=== PATIENT | female | born 1940 | race Caucasian/White ===

== ENCOUNTER 2020-01-15 15:57 | Observation (INO) ==
[2020-01-15] MEDS ORDERED: TUSSIONEX PENNKINETIC SUSP PO PRN (17:28)
[2020-01-15] MEDS ORDERED: REMDESIVIR 200 MG in NS 250 ML IV 250 ML IV SCH (17:28)
[2020-01-15] MEDS ORDERED: LEVAQUIN PREMIX IV 500 MG 500 MG/100 ML BAG IV SCH (17:28)
[2020-01-15] MEDS ORDERED: NS 1/2 1000 ML IV 1,000 ML IV ONE (17:38)
[2020-01-15 17:54] LABS: ABG BASE EXCESS 1.3 mmol/L (-2.0-2.0); ABG HCO3 25.9 mmol/L (22-26)
[2020-01-15] MEDS: DUONEB 0.5 MG/3 MG (3 mL) NEB SCH ×2 (18:29→21:21)
[2020-01-15] MEDS: PULMICORT NEB TX 0.5 MG NEB SCH ×2 (18:29→21:21)
[2020-01-15] MEDS: NS 1/2 1000 ML IV 1,000 ML IV SCH (18:52)
[2020-01-15] MEDS: ROBITUSSIN DM PO SCH ×2 (18:52→21:14)
[2020-01-15] MEDS: VSL#3 PO SCH (18:52)
[2020-01-15 19:16] LABS: BASOPHILS % (AUTO) 0.6 % (0.2-1.0); EOSINOPHILS # (AUTO) 0.1 x10^3/uL (0.0-0.2); EOSINOPHILS % (AUTO) 1.9 % (0.9-2.9); HEMATOCRIT 35.2 % (36.0-47.0); HEMOGLOBIN 11.4 g/dL (12.0-16.0); LYMPHOCYTES # (AUTO) 2.7 X10^3/uL (1.3-2.9); LYMPHOCYTES % (AUTO) 44.9 % (21.0-51.0); MEAN CORPUSCULAR HEMOGLOBIN 26.7 pg (27.0-34.0); MEAN CORPUSCULAR HGB CONC 32.3 g/dL (33.0-35.0); MEAN CORPUSCULAR VOLUME 82.7 fL (80.0-100.0); MEAN PLATELET VOLUME 7.3 fL (7.4-11.0); MONOCYTES # (AUTO) 0.4 x10^3/uL (0.3-0.8); MONOCYTES % (AUTO) 6.4 % (0.0-13.0); NEUTROPHILS # (AUTO) 2.8 x10^3/uL (2.2-4.8); NEUTROPHILS % (AUTO) 46.2 % (42.0-75.0); PLATELET COUNT 180 X10^3/uL (150.0-450.0); RED BLOOD COUNT 4.26 X10^6/uL (3.5-5.4); RED CELL DISTRIBUTION WIDTH 14.4 % (11.6-16.5)
[2020-01-15 19:35] LABS: ALANINE AMINOTRANSFERASE 24 Units/L (12-78); ALBUMIN 3.4 g/dL (3.4-5.0); ALKALINE PHOSPHATASE 73 Units/L (46-116); ASPARTATE AMINO TRANSFERASE 17 Units/L (15-37); BLOOD UREA NITROGEN 8 mg/dL (7-18); CALCIUM 8.6 mg/dL (8.5-10.1); CARBON DIOXIDE 32.9 mmol/L (21-32); CHLORIDE 103 mmol/L (98-107); CKMB % 0.2 % (<4); CREATINE KINASE 578 Units/L (26-192); CREATINE KINASE MB < 1.0 ng/mL (0-4.0); CREATININE 0.93 mg/dL (0.55-1.02); SODIUM 141 mmol/L (136-145); TOTAL PROTEIN 6.3 g/dL (6.4-8.2); TROPONIN I < 0.02 ng/mL (0-1.5); eGFR NON BLACK RACES > 60 (>60)
[2020-01-15] MEDS ORDERED: SOLU-Medrol 40 MG VIAL ONE (20:29)
[2020-01-15] MEDS ORDERED: TESSALON PERLES PO ONE (20:29)
[2020-01-15] MEDS ORDERED: DUONEB 0.5 MG/3 MG (3 mL) NEB SCH (21:00)
[2020-01-15] MEDS ORDERED: PULMICORT NEB TX 0.5 MG NEB SCH (21:00)
[2020-01-15] MEDS ORDERED: PEPCID 20 MG IV PREMIX* 20 MG/50 ML BAG IV SCH (21:00)
[2020-01-15] MEDS: SOLU-Medrol 40 MG VIAL IVP SCH (21:14)
[2020-01-15] MEDS: PROTONIX INJ 40 MG VIAL IVP SCH (21:14)
[2020-01-15] MEDS: TESSALON PERLES PO SCH (21:14)
[2020-01-15 22:10] LABS: RSV AG DETECTION NEGATIVE (NEGATIVE); STREP A BY PCR NOT DETECTED (NOT DETECT)
--- NOTE | 2020-01-15 22:14 | RAD ---
HISTORYPNEUMONIASTUDYCHEST, 1 VIEWCOMPARISONNoneFINDINGSThe trachea is midline. The cardiac silhouette is slightly enlarged.. The lungs are clear without focal infiltrate or effusion. Pulmonary vasculature within normal limits. No pneumothorax. The bony thorax is unremarkable.IMPRESSIONSlight cardiomegaly.No active cardiopulmonary diseaseElectronically signed by: Cr Gann (Jan 15, 2020 22:13:17)
[2020-01-16] MEDS: SOLU-Medrol 40 MG VIAL IVP SCH ×3 (05:30→21:45)
[2020-01-16] MEDS: TESSALON PERLES PO SCH ×3 (05:30→21:45)
[2020-01-16 06:00] LABS: ALBUMIN 3.3 g/dL (3.4-5.0); CALCIUM 8.6 mg/dL (8.5-10.1); CARBON DIOXIDE 27.1 mmol/L (21-32); COR CA(FOR HYPOALB) 9.2 mg/dL (8.5-10.1); CREATININE 1.37 mg/dL (0.55-1.02); TOTAL PROTEIN 7.3 g/dL (6.4-8.2)
--- NOTE | 2020-01-16 06:10 | RAD ---
HISTORYFollow-up COVID-19STUDYChest AP [id number]/09/2020FINDINGSThe heart remains enlarged. No congestive heart failure is noted. The tyra are normal. The lungs are mildly hyperinflated but free of acute infiltrates. No pleural effusions are identified. Bony thorax is unremarkable.IMPRESSIONMild cardiomegaly without congestive heart failureLungs hyperinflated but free of acute infiltratesElectronically signed by: ELDON HEDRICK (Jan 16, 2020 06:08:20)
[2020-01-16 06:17] LABS: BASOPHILS % (AUTO) 0.3 % (0.2-1.0); HEMATOCRIT 38.2 % (36.0-47.0); HEMOGLOBIN 12.8 g/dL (12.0-16.0); LYMPHOCYTES # (AUTO) 0.8 X10^3/uL (1.3-2.9); LYMPHOCYTES % (AUTO) 22.3 % (21.0-51.0); MEAN CORPUSCULAR HEMOGLOBIN 31.6 pg (27.0-34.0); MEAN CORPUSCULAR HGB CONC 33.4 g/dL (33.0-35.0); MEAN CORPUSCULAR VOLUME 94.6 fL (80.0-100.0); MEAN PLATELET VOLUME 8.8 fL (7.4-11.0); MONOCYTES # (AUTO) 0.1 x10^3/uL (0.3-0.8); MONOCYTES % (AUTO) 3.1 % (0.0-13.0); NEUTROPHILS # (AUTO) 2.7 x10^3/uL (2.2-4.8); NEUTROPHILS % (AUTO) 74.3 % (42.0-75.0); PLATELET COUNT 217 X10^3/uL (150.0-450.0); RED BLOOD COUNT 4.04 X10^6/uL (3.5-5.4); RED CELL DISTRIBUTION WIDTH 14.4 % (11.6-16.5); WHITE BLOOD COUNT 3.6 X10^3/uL (3.6-10.0)
[2020-01-16] MEDS: LEVAQUIN PREMIX IV 250 MG 250 MG/50 ML BAG IV SCH (09:23)
[2020-01-16] MEDS: PULMICORT NEB TX 0.5 MG NEB SCH ×2 (09:24→21:36)
[2020-01-16] MEDS: PROTONIX INJ 40 MG VIAL IVP SCH ×2 (09:24→21:45)
[2020-01-16] MEDS: DUONEB 0.5 MG/3 MG (3 mL) NEB SCH ×4 (09:24→21:35)
[2020-01-16] MEDS: PEPCID 20 MG IV PREMIX* 20 MG/50 ML BAG IV SCH (09:24)
[2020-01-16] MEDS: ROBITUSSIN DM PO SCH ×4 (09:25→22:03)
[2020-01-16] MEDS: LOVENOX INJ 30 MG SYR SC SCH ×2 (09:25→21:45)
[2020-01-16] MEDS: VSL#3 PO SCH (09:26)
[2020-01-16] MEDS ORDERED: NS 1/2 1000 ML IV 1,000 ML IV ONE (10:20)
[2020-01-16] MEDS: NS 1/2 1000 ML IV 1,000 ML IV SCH ×2 (10:24→22:03)
[2020-01-16] MEDS: REMDESIVIR 100 MG in NS 250 ML IV 250 ML IV SCH (10:24)
[2020-01-16] MEDS: SYNTHROID 125 mcg TAB PO SCH (12:37)
[2020-01-16] MEDS: ASPIRIN EC 81 MG PO SCH (12:37)
[2020-01-16] MEDS: COREG TAB 12.5 MG PO SCH ×2 (12:37→21:45)
[2020-01-16] MEDS: NORVASC TAB 5 MG PO SCH (12:38)
[2020-01-16] MEDS: COZAAR PO SCH ×2 (12:38→21:45)
[2020-01-16] MEDS: NEURONTIN CAP 400 MG PO SCH ×2 (12:38→21:45)
[2020-01-16 18:39] VITALS: BMI 29.2
[2020-01-16] MEDS: KLONOPIN TAB 0.5 MG PO SCH (21:45)
[2020-01-17] MEDS ORDERED: NS 1/2 1000 ML IV 1,000 ML IV ONE ×2 (03:33→19:56)
[2020-01-17] MEDS: NS 1/2 1000 ML IV 1,000 ML IV SCH ×3 (03:55→20:04)
[2020-01-17] MEDS: TESSALON PERLES PO SCH ×3 (05:08→21:07)
[2020-01-17] MEDS: SOLU-Medrol 40 MG VIAL IVP SCH ×3 (05:08→21:07)
[2020-01-17 05:14] LABS: BASOPHILS % (AUTO) 0.3 % (0.2-1.0); HEMATOCRIT 38.3 % (36.0-47.0); HEMOGLOBIN 13.1 g/dL (12.0-16.0); LYMPHOCYTES # (AUTO) 1.2 X10^3/uL (1.3-2.9); LYMPHOCYTES % (AUTO) 15.2 % (21.0-51.0); MEAN CORPUSCULAR HEMOGLOBIN 31.9 pg (27.0-34.0); MEAN CORPUSCULAR HGB CONC 34.1 g/dL (33.0-35.0); MEAN CORPUSCULAR VOLUME 93.5 fL (80.0-100.0); MEAN PLATELET VOLUME 8.3 fL (7.4-11.0); MONOCYTES # (AUTO) 0.4 x10^3/uL (0.3-0.8); MONOCYTES % (AUTO) 4.8 % (0.0-13.0); NEUTROPHILS # (AUTO) 6.1 x10^3/uL (2.2-4.8); NEUTROPHILS % (AUTO) 79.7 % (42.0-75.0); PLATELET COUNT 232 X10^3/uL (150.0-450.0); RED CELL DISTRIBUTION WIDTH 14.7 % (11.6-16.5); WHITE BLOOD COUNT 7.7 X10^3/uL (3.6-10.0)
[2020-01-17 05:31] LABS: ALBUMIN 3.2 g/dL (3.4-5.0); CALCIUM 9.4 mg/dL (8.5-10.1); CARBON DIOXIDE 26.1 mmol/L (21-32); CREATININE 1.43 mg/dL (0.55-1.02); TOTAL PROTEIN 7.2 g/dL (6.4-8.2)
--- NOTE | 2020-01-17 06:27 | RAD ---
HISTORYCOVID, SOBSTUDYCHEST, 1 [id number]/10/2020FINDINGSThe trachea is midline. The cardiac silhouette is enlarged.. The lungs are clear without focal infiltrate or effusion. The bony thorax is unremarkable.IMPRESSIONMild cardiomegaly.No active cardiopulmonary diseaseElectronically signed by: Cr Gann (Jan 17, 2020 06:26:07)
[2020-01-17 08:02] LABS: ABG ALLEN TEST POS; ABG BASE EXCESS 0.8 mmol/L (-2.0-2.0); ABG HCO3 25.3 mmol/L (22-26)
[2020-01-17] MEDS: COREG TAB 12.5 MG PO SCH ×2 (09:21→20:05)
[2020-01-17] MEDS: ASPIRIN EC 81 MG PO SCH (09:21)
[2020-01-17] MEDS: COZAAR PO SCH ×2 (09:21→20:05)
[2020-01-17] MEDS: LEVAQUIN PREMIX IV 250 MG 250 MG/50 ML BAG IV SCH (09:22)
[2020-01-17] MEDS: PEPCID 20 MG IV PREMIX* 20 MG/50 ML BAG IV SCH (09:23)
[2020-01-17] MEDS: PROTONIX INJ 40 MG VIAL IVP SCH ×2 (09:23→20:06)
[2020-01-17] MEDS: NEURONTIN CAP 400 MG PO SCH ×2 (09:23→20:06)
[2020-01-17] MEDS: ROBITUSSIN DM PO SCH ×6 (09:24→20:05)
[2020-01-17] MEDS: NORVASC TAB 5 MG PO SCH (09:24)
[2020-01-17] MEDS: REMDESIVIR 100 MG in NS 250 ML IV 250 ML IV SCH (09:24)
[2020-01-17] MEDS: VSL#3 PO SCH (09:25)
[2020-01-17] MEDS: SYNTHROID 125 mcg TAB PO SCH (09:25)
[2020-01-17] MEDS: LOVENOX INJ 30 MG SYR SC SCH ×2 (09:26→20:06)
[2020-01-17] MEDS: PULMICORT NEB TX 0.5 MG NEB SCH ×2 (09:36→21:17)
[2020-01-17] MEDS: DUONEB 0.5 MG/3 MG (3 mL) NEB SCH ×4 (09:36→21:17)
--- NOTE | 2020-01-17 13:09 | PCM.PROG ---
Progress Note - Progress Note for Day of Date of Exam: 01/17/20 - Subjective Subjective: IS BEING TREATED FOR BRONCHOPNEUMONIA DUE TO COVID-19 AND HYPOXIA. TODAY, SHE IS ALERT AND ORIENTED, LYING IN BED ON MORNING ROUNDS. SHE CONTINUES WITH COMPLAINTS OF SHORTNESS OF BREATH, COUGH, BODY ACHES, AND WEAKNESS. SHE DENIES SIGNIFICANT IMPROVEMENT IN SYMPTOMS SINCE ADMISSION. SHE IS CURRENTLY UTILIZING OXYGEN VIA NASAL CANNULA AT 2 LITERS/MINUTE. ON EXAMINATION, HEART IS REGULAR IN RATE AND RHYTHM. BILATERAL LUNGS ARE NOTED WITH DIMINISHED LUNG SOUNDS THROUGHOUT. ABDOMEN IS ROUND, SOFT, AND NON-TENDER WITH NORMAL BOWEL SOUNDS NOTED IN ALL QUADRANTS. HER VITALS THIS MORNING ARE: [id number]%nc-128/62. LABS WERE OBTAINED. ABNORMAL LAB VALUES INCLUDE THE FOLLOWING: BUN 19, CREATININE 1.43, GLUCOSE 166, TOTAL BILI 0.10, ALK PHOS 120, CRP 7.80, ALBUMIN 3.2. BLOOD CULTURES ARE PENDING. AN ABG WAS OBTAINED AND WAS WITHIN NORMAL LIMITS. P02 82, FI02 28.0. CHEST XRAY REVEALED: Mild cardiomegaly. No active cardiopulmonary disease. SHE IS CURRENTLY RECEIVING NS AT 75 ML/HR, REMDESIVIR 100MG IV DAILY, LEVAQUIN 250MG IV DAILY, DUONEBS QID, PULMICORT NEBS BID, TESSALON PERLES 200MG PO TID, TUSSIONEX 5ML PO Q12H PRN, LOVENOX 30MG SC BID, PEPCID 20MG IV DAILY, PROTONIX 40MG IV BID, SOLU-MEDROL 40MG IV Q8H, AND HER HOME MEDICATIONS WERE RESUMED. WE WILL CONTINUE WITH CURRENT PLAN OF CARE TODAY. OTHERWISE, WE PLAN TO FOLLOW UP WITH AM LABS, CHEST XRAY, AND CONTINUE TO MONITOR. - Past Medical Family Social History Past Med/Fam/Surg Hx: No changes since H&P Allergies: Allergies No Known Allergies Allergy (Verified 01/15/20 17:28) - Review of Systems ROS: No change since H&P - Vital Signs and I&O's Vital Signs: Temperature 98 F Pulse Rate [Left Radial] 82 Pulse Rate 72 Respiratory Rate 23 Blood Pressure [Left Arm] 128/62 O2 Sat by Pulse Oximetry 97 Intake and Output: Intake & Output 01/15/20 01/16/20 01/17/20 01/18/20 11:59 11:59 11:59 11:59 Intake Total 1949 263 / 263 Balance 1949 - Physical Exam Oriented: Normal Eyes: Normal Ear: Normal Nose: Normal Throat: Normal Respiratory: Generalized, Diminished Cardiovascular: Normal : Normal Auscultation: Bowel Sounds: Normal Palpation: Normal Tenderness: Normal Skin: Normal Musculoskeletal: Normal Psychiatric: Normal Mood Description: Calm Affect: Normal Speech Pattern: Clear, Appropriate - Laboratory and Diagnostics Result Diagrams: 01/17/20 04:32 01/17/20 04:32 Labs: 01/15/20 18:17 Blood Blood Culture - Preliminary 01/15/20 18:06 Blood Blood Culture - Preliminary Laboratory WBC 7.7 X10^3/uL (3.6-10.0) 01/17/20 04:32 RBC 4.10 X10^6/uL (3.5-5.4) 01/17/20 04:32 Hgb 13.1 g/dL (12.0-16.0) 01/17/20 04:32 Hct 38.3 % (36.0-47.0) 01/17/20 04:32 MCV 93.5 fL (80.0-100.0) 01/17/20 04:32 MCH 31.9 pg (27.0-34.0) 01/17/20 04:32 MCHC 34.1 g/dL (33.0-35.0) 01/17/20 04:32 RDW 14.7 % (11.6-16.5) 01/17/20 04:32 Plt Count 232 X10^3/uL (150.0-450.0) 01/17/20 04:32 MPV 8.3 fL (7.4-11.0) 01/17/20 04:32 Neut % (Auto) 79.7 % (42.0-75.0) H 01/17/20 04:32 Lymph % (Auto) 15.2 % (21.0-51.0) L 01/17/20 04:32 Cooke % (Auto) 4.8 % (0.0-13.0) 01/17/20 04:32 Eos % (Auto) 0.0 % (0.9-2.9) L 01/17/20 04:32 Baso % (Auto) 0.3 % (0.2-1.0) 01/17/20 04:32 Neut # (Auto) 6.1 x10^3/uL (2.2-4.8) H 01/17/20 04:32 Lymph # (Auto) 1.2 X10^3/uL (1.3-2.9) L 01/17/20 04:32 [place] # (Auto) 0.4 x10^3/uL (0.3-0.8) 01/17/20 04:32 Eos # (Auto) 0.0 x10^3/uL (0.0-0.2) 01/17/20 04:32 Baso # (Auto) 0.0 X10^3/uL (0.0-0.1) 01/17/20 04:32 Absolute Nucleated RBC 0.0 /100WBC 01/17/20 04:32 D-Dimer 0.21 ug/ml (0.0-0.57) 01/15/20 18:06 Sample Site Rrad 01/17/20 07:54 ABG pH 7.420 (7.35-7.45) 01/17/20 07:54 ABG pCO2 39.0 mmHg (35.0-45.0) 01/17/20 07:54 ABG pO2 82.0 mmHg (80.0-100.0) 01/17/20 07:54 ABG HCO3 25.3 mmol/L (22-26) 01/17/20 07:54 ABG O2 Saturation 96.0 % (90-100) 01/17/20 07:54 ABG Base Excess 0.8 mmol/L (-2.0-2.0) 01/17/20 07:54 Steven Test Pos 01/17/20 07:54 A-a Gradient 69.0 mmHg 01/17/20 07:54 FiO2 28.0 01/17/20 07:54 Blood Gas Comments Pt nas well elj 01/17/20 07:54 Sodium 139 mmol/L (136-145) 01/17/20 04:32 Corrected Sodium 141 mmol/L (136-145) 01/17/20 04:32 Potassium 4.0 mmol/L (3.5-5.1) 01/17/20 04:32 Chloride 103 mmol/L (98-107) 01/17/20 04:32 Carbon Dioxide 26.1 mmol/L (21-32) 01/17/20 04:32 BUN 19 mg/dL (7-18) H 01/17/20 04:32 Creatinine 1.43 mg/dL (0.55-1.02) H 01/17/20 04:32 Est GFR (MDRD) Af Amer 45 (>60) L 01/17/20 04:32 Est GFR (MDRD) Non-Af 38 (>60) L 01/17/20 04:32 Glucose 166 mg/dL (65-99) H 01/17/20 04:32 Lactic Acid Cancelled 01/15/20 18:06 Calcium 9.4 mg/dL (8.5-10.1) 01/17/20 04:32 Corrected Calcium 10.0 mg/dL (8.5-10.1) 01/17/20 04:32 Ferritin 103 ng/mL (8-252) 01/17/20 04:32 Total Bilirubin 0.10 mg/dL (0.2-1.0) L 01/17/20 04:32 AST 33 Units/L (15-37) 01/17/20 04:32 ALT 35 Units/L (12-78) 01/17/20 04:32 Alkaline Phosphatase 120 Units/L (46-116) H 01/17/20 04:32 Creatine Kinase 578 Units/L (26-192) H 01/15/20 18:06 CK-MB (CK-2) < 1.0 ng/mL (0-4.0) 01/15/20 18:06 CK/CKMB % Calc 0.2 % (<4) 01/15/20 18:06 Troponin I < 0.02 ng/mL (0-1.5) 01/15/20 18:06 C-Reactive Protein 7.80 mg/L (0-3.0) H 01/17/20 04:32 B-Natriuretic Peptide 37.0 pg/mL (0-79) 01/15/20 18:06 Total Protein 7.2 g/dL (6.4-8.2) 01/17/20 04:32 Albumin 3.2 g/dL (3.4-5.0) L 01/17/20 04:32 Globulin 4.0 g/dL (2.5-4.5) 01/17/20 04:32 Albumin/Globulin Ratio 0.8 Ratio (1.1-2.1) L 01/17/20 04:32 RSV Nasal Swab Negative (NEGATIVE) 01/15/20 21:05 Influenza Type A (PCR) Negative (NEGATIVE) 01/15/20 21:05 Influenza Type B (PCR) Negative (NEGATIVE) 01/15/20 21:05 SARS CoV-2 RNA Rapid HALLEY Positive (NEGATIVE) A 01/15/20 21:05 S. pyogenes (TEM-PCR) Not detected (NOT DETECT) 01/15/20 21:05 - Plan (1) Bronchopneumonia Status: Acute Plan: ADMIT, NS AT 75 ML/HR, REMDESIVIR 100MG IV DAILY, LEVAQUIN 250MG IV DAILY, DUONEBS QID, PULMICORT NEBS BID, TESSALON PERLES 200MG PO TID, TUSSIONEX 5ML PO Q12H PRN, LOVENOX 30MG SC BID, PEPCID 20MG IV DAILY, PROTONIX 40MG IV BID, SOLU-MEDROL 40MG IV Q8H, AND HER HOME MEDICATIONS WERE RESUMED. (2) COVID-19 Status: Acute
[2020-01-17] MEDS: KLONOPIN TAB 0.5 MG PO SCH (20:05)
[2020-01-18] MEDS: NS 1/2 1000 ML IV 1,000 ML IV SCH ×2 (02:12→11:32)
[2020-01-18 05:03] LABS: BASOPHILS % (AUTO) 0.2 % (0.2-1.0); HEMATOCRIT 39.7 % (36.0-47.0); HEMOGLOBIN 12.9 g/dL (12.0-16.0); LYMPHOCYTES # (AUTO) 1.3 X10^3/uL (1.3-2.9); LYMPHOCYTES % (AUTO) 9.9 % (21.0-51.0); MEAN CORPUSCULAR HGB CONC 32.6 g/dL (33.0-35.0); MEAN CORPUSCULAR VOLUME 95.2 fL (80.0-100.0); MEAN PLATELET VOLUME 9.1 fL (7.4-11.0); MONOCYTES # (AUTO) 0.4 x10^3/uL (0.3-0.8); MONOCYTES % (AUTO) 2.8 % (0.0-13.0); NEUTROPHILS # (AUTO) 11.4 x10^3/uL (2.2-4.8); NEUTROPHILS % (AUTO) 87.1 % (42.0-75.0); PLATELET COUNT 223 X10^3/uL (150.0-450.0); RED BLOOD COUNT 4.17 X10^6/uL (3.5-5.4); WHITE BLOOD COUNT 13.1 X10^3/uL (3.6-10.0)
[2020-01-18 05:23] LABS: ALBUMIN 3.1 g/dL (3.4-5.0); CALCIUM 8.8 mg/dL (8.5-10.1); CARBON DIOXIDE 27.9 mmol/L (21-32); COR CA(FOR HYPOALB) 9.5 mg/dL (8.5-10.1); CREATININE 1.38 mg/dL (0.55-1.02); TOTAL PROTEIN 6.8 g/dL (6.4-8.2)
[2020-01-18] MEDS: SOLU-Medrol 40 MG VIAL IVP SCH (06:00)
[2020-01-18] MEDS: TESSALON PERLES PO SCH (06:00)
--- NOTE | 2020-01-18 06:48 | RAD ---
HISTORYPneumonia SOBSTUDYAP [id number]/11/2020FINDINGSThe heart is not significantly enlarged. The lungs are clear of active disease. No segmental or lobar consolidation, edema or pleural fluid demonstrated.IMPRESSIONNo acute chest findings.Electronically signed by: ZENA MACIAS (Jan 18, 2020 06:46:52)
[2020-01-18] MEDS: PULMICORT NEB TX 0.5 MG NEB SCH (08:59)
[2020-01-18] MEDS: DUONEB 0.5 MG/3 MG (3 mL) NEB SCH ×2 (08:59→12:03)
[2020-01-18] MEDS ORDERED: REMDESIVIR 200 MG in NS 250 ML IV 250 ML IV NR (09:00)
[2020-01-18] MEDS: ROBITUSSIN DM PO SCH (10:00)
[2020-01-18] MEDS: VSL#3 PO SCH (10:00)
[2020-01-18] MEDS: ASPIRIN EC 81 MG PO SCH (10:00)
[2020-01-18] MEDS: NEURONTIN CAP 400 MG PO SCH (10:00)
[2020-01-18] MEDS: LEVAQUIN PREMIX IV 250 MG 250 MG/50 ML BAG IV SCH (10:00)
[2020-01-18] MEDS: COZAAR PO SCH (10:00)
[2020-01-18] MEDS: COREG TAB 12.5 MG PO SCH (10:00)
[2020-01-18] MEDS: SYNTHROID 125 mcg TAB PO SCH (10:00)
[2020-01-18] MEDS: NORVASC TAB 5 MG PO SCH (10:29)
[2020-01-18] MEDS ORDERED: NS 1/2 1000 ML IV 1,000 ML IV ONE (10:45)
[2020-01-18] MEDS: LOVENOX INJ 30 MG SYR SC SCH (11:11)
--- NOTE | 2020-01-18 12:12 | W.DIS.FURT ---
Summary of Discharge Admission Diagnosis Patient Problems (Updated 01/17/20 @ 13:09 by Stiven Booker) Bronchopneumonia (Acute) J18.0 COVID-19 (Acute) U07.1 Vital Signs: Vital Signs (72 hours) 01/15/20 18:29 01/15/20 18:31 01/15/20 19:00 Temperature 99.0 F Pulse Rate 83 83 Pulse Rate [Left Radial] 84 Respiratory Rate 20 Blood Pressure [Left Arm] 150/76 O2 Sat by Pulse Oximetry 95 95 98 01/15/20 20:00 01/15/20 21:21 01/16/20 00:00 Temperature 99.0 F 99.2 F Pulse Rate 80 Pulse Rate [Left Radial] 79 74 Respiratory Rate 22 20 Blood Pressure [Left Arm] 136/81 152/69 O2 Sat by Pulse Oximetry 95 97 96 01/16/20 04:00 01/16/20 08:00 01/16/20 09:24 Temperature 98.5 F 98.2 F Pulse Rate 82 Pulse Rate [Left Radial] 78 83 Respiratory Rate 22 19 Blood Pressure [Left Arm] 147/69 157/83 O2 Sat by Pulse Oximetry 92 L 94 L 95 01/16/20 13:46 01/16/20 16:00 01/16/20 16:32 Temperature 97.8 F Pulse Rate 81 76 Pulse Rate [Left Radial] 78 Respiratory Rate 20 Blood Pressure [Left Arm] 143/68 O2 Sat by Pulse Oximetry 90 L 97 96 01/16/20 20:00 01/16/20 21:36 01/17/20 00:00 Temperature 97.8 F 98.8 F Pulse Rate 83 Pulse Rate [Left Radial] 84 82 Respiratory Rate 23 23 Blood Pressure [Left Arm] 169/81 125/64 O2 Sat by Pulse Oximetry 95 97 95 01/17/20 04:00 01/17/20 08:00 01/17/20 09:36 Temperature 98 F 98.4 F Pulse Rate 72 Pulse Rate [Left Radial] 82 75 Respiratory Rate 23 19 Blood Pressure [Left Arm] 128/62 169/80 O2 Sat by Pulse Oximetry 95 96 97 01/17/20 12:00 01/17/20 12:24 01/17/20 16:00 Temperature 98.0 F 98.1 F Pulse Rate 71 Pulse Rate [Left Radial] 71 71 Respiratory Rate 20 18 Blood Pressure [Left Arm] 135/68 135/68 O2 Sat by Pulse Oximetry 92 L 93 L 92 L 01/17/20 17:13 01/17/20 19:51 01/18/20 00:00 Temperature 98.2 F Pulse Rate 70 Pulse Rate [Left Radial] 70 70 Respiratory Rate 18 18 Blood Pressure [Left Arm] 167/92 128/62 O2 Sat by Pulse Oximetry 96 94 L 94 L 01/18/20 04:00 01/18/20 08:59 Temperature 98.2 F Pulse Rate 63 Pulse Rate [Left Radial] 70 Respiratory Rate 18 Blood Pressure [Left Arm] 165/73 O2 Sat by Pulse Oximetry 94 L 99 Labs: Laboratory Last Values WBC 13.1 X10^3/uL (3.6-10.0) H 01/18/20 04:21 RBC 4.17 X10^6/uL (3.5-5.4) 01/18/20 04:21 Hgb 12.9 g/dL (12.0-16.0) 01/18/20 04:21 Hct 39.7 % (36.0-47.0) 01/18/20 04:21 MCV 95.2 fL (80.0-100.0) 01/18/20 04:21 MCH 31.0 pg (27.0-34.0) 01/18/20 04:21 MCHC 32.6 g/dL (33.0-35.0) L 01/18/20 04:21 RDW 15.0 % (11.6-16.5) 01/18/20 04:21 Plt Count 223 X10^3/uL (150.0-450.0) 01/18/20 04:21 MPV 9.1 fL (7.4-11.0) 01/18/20 04:21 Neut % (Auto) 87.1 % (42.0-75.0) H 01/18/20 04:21 Lymph % (Auto) 9.9 % (21.0-51.0) L 01/18/20 04:21 [place]osh % (Auto) 2.8 % (0.0-13.0) 01/18/20 04:21 Eos % (Auto) 0.0 % (0.9-2.9) L 01/18/20 04:21 Baso % (Auto) 0.2 % (0.2-1.0) 01/18/20 04:21 Neut # (Auto) 11.4 x10^3/uL (2.2-4.8) H 01/18/20 04:21 Lymph # (Auto) 1.3 X10^3/uL (1.3-2.9) 01/18/20 04:21 [place]osh # (Auto) 0.4 x10^3/uL (0.3-0.8) 01/18/20 04:21 Eos # (Auto) 0.0 x10^3/uL (0.0-0.2) 01/18/20 04:21 Baso # (Auto) 0.0 X10^3/uL (0.0-0.1) 01/18/20 04:21 Absolute Nucleated RBC 0.0 /100WBC 01/18/20 04:21 D-Dimer 0.21 ug/ml (0.0-0.57) 01/15/20 18:06 Sample Site Rrad 01/17/20 07:54 ABG pH 7.420 (7.35-7.45) 01/17/20 07:54 ABG pCO2 39.0 mmHg (35.0-45.0) 01/17/20 07:54 ABG pO2 82.0 mmHg (80.0-100.0) 01/17/20 07:54 ABG HCO3 25.3 mmol/L (22-26) 01/17/20 07:54 ABG O2 Saturation 96.0 % (90-100) 01/17/20 07:54 ABG Base Excess 0.8 mmol/L (-2.0-2.0) 01/17/20 07:54 Steven Test Pos 01/17/20 07:54 A-a Gradient 69.0 mmHg 01/17/20 07:54 FiO2 28.0 01/17/20 07:54 Blood Gas Comments Pt nas well elj 01/17/20 07:54 Sodium 139 mmol/L (136-145) 01/18/20 04:21 Corrected Sodium 140 mmol/L (136-145) 01/18/20 04:21 Potassium 4.0 mmol/L (3.5-5.1) 01/18/20 04:21 Chloride 103 mmol/L (98-107) 01/18/20 04:21 Carbon Dioxide 27.9 mmol/L (21-32) 01/18/20 04:21 BUN 23 mg/dL (7-18) H 01/18/20 04:21 Creatinine 1.38 mg/dL (0.55-1.02) H 01/18/20 04:21 Est GFR (MDRD) Af Amer 47 (>60) L 01/18/20 04:21 Est GFR (MDRD) Non-Af 39 (>60) L 01/18/20 04:21 Glucose 156 mg/dL (65-99) H 01/18/20 04:21 Lactic Acid Cancelled 01/15/20 18:06 Calcium 8.8 mg/dL (8.5-10.1) 01/18/20 04:21 Corrected Calcium 9.5 mg/dL (8.5-10.1) 01/18/20 04:21 Ferritin 111 ng/mL (8-252) 01/18/20 04:21 Total Bilirubin 0.10 mg/dL (0.2-1.0) L 01/18/20 04:21 AST 33 Units/L (15-37) 01/18/20 04:21 ALT 30 Units/L (12-78) 01/18/20 04:21 Alkaline Phosphatase 107 Units/L (46-116) 01/18/20 04:21 Creatine Kinase 578 Units/L (26-192) H 01/15/20 18:06 CK-MB (CK-2) < 1.0 ng/mL (0-4.0) 01/15/20 18:06 CK/CKMB % Calc 0.2 % (<4) 01/15/20 18:06 Troponin I < 0.02 ng/mL (0-1.5) 01/15/20 18:06 C-Reactive Protein 2.50 mg/L (0-3.0) 01/18/20 04:21 B-Natriuretic Peptide 37.0 pg/mL (0-79) 01/15/20 18:06 Total Protein 6.8 g/dL (6.4-8.2) 01/18/20 04:21 Albumin 3.1 g/dL (3.4-5.0) L 01/18/20 04:21 Globulin 3.7 g/dL (2.5-4.5) 01/18/20 04:21 Albumin/Globulin Ratio 0.8 Ratio (1.1-2.1) L 01/18/20 04:21 RSV Nasal Swab Negative (NEGATIVE) 01/15/20 21:05 Influenza Type A (PCR) Negative (NEGATIVE) 01/15/20 21:05 Influenza Type B (PCR) Negative (NEGATIVE) 01/15/20 21:05 SARS CoV-2 RNA Rapid HALLEY Positive (NEGATIVE) A 01/15/20 21:05 S. pyogenes (TEM-PCR) Not detected (NOT DETECT) 01/15/20 21:05 Reason For Visit: PNEUMONIA,COVID POSITIVE Discharge Diagnosis All Active Problems (Updated 01/17/20 @ 13:09 by Stiven Booker) Bronchopneumonia (Acute) COVID-19 (Acute) Plan of Treatment: Continue with present treatment and follow up plan. Pt is to keep follow up appointment as instructed and take medications as ordered. Discharge Medications Discharge Medications: No Known Allergies Allergy (Verified 01/15/20 17:28) CONTINUE taking the following medications amlodipine 5 mg PO DAILY 01/16/20 [History] aspirin 81 mg PO DAILY 01/16/20 [History] carvedilol 12.5 mg PO BID 01/16/20 [History] clonazepam 0.5 mg PO QHS 01/16/20 [History] furosemide 40 mg PO DAILY 01/16/20 [History] gabapentin 400 mg PO BID 01/16/20 [History] levothyroxine 125 mcg PO DAILY 01/16/20 [History] losartan 50 mg PO BID 01/16/20 [History] New Prescriptions Lactobac. rhamnosus GG-inulin [Culturelle Probiotics] 1 cap PO DAILY #30 cap 01/17/20 [Rx] Lactobac. rhamnosus GG-inulin [Culturelle Probiotics] 1 cap PO DAILY #30 cap 01/17/20 [Rx] apixaban [Eliquis] 2.5 mg PO BID #60 tab 01/17/20 [Rx] benzonatate [Tessalon Perles] 200 mg PO TID #42 cap 01/17/20 [Rx] budesonide 1 ea NEB BIDRESP #50 ml 01/17/20 [Rx] ipratropium-albuterol 1 neb NEB TID #90 each 01/17/20 [Rx] levofloxacin 500 mg PO DAILY #10 tab 01/17/20 [Rx] methylprednisolone [Medrol (Rolly)] See Rx Instructions .ROUTE .COMPLEX #1 ea 01/17/20 [Rx] Discharge Disposition Assessment: Stable no acute distress noted at time of discharge. Discharge Plan Discharge Plan Patient Disposition: 01 HOME, SELF-CARE Condition: Stable Health Concerns: Post Hospitalization: new medications and changes needed to prevent readmission or further decline. Pt educated and given instructions on all concerns. Care Plan Goals: Problem: Infection Goal: Temperature within normal limits. Resolved infection. Instructions: Follow provided instructions. Follow up with primary physician as directed. Contact primary care physician or report to the closest Emergency Room if condition worsens. Plan of Treatment: Continue with present treatment and follow up plan. Pt is to keep follow up appointment as instructed and take medications as ordered. Assessment: Stable no acute distress noted at time of discharge. Prescription drug monitoring program results: PDMP reviewed and no concerns identified Prescriptions: New ipratropium-albuterol [ipratropium-albuterol] 3 ML solution for nebulization 1 neb NEB TID Qty: 90 RF: 1 benzonatate [Tessalon Perles] 100 mg Capsule 200 mg PO TID Qty: 42 RF: 1 budesonide 0.5 mg/2 mL Suspension For Nebulization 1 ea NEB BIDRESP Qty: 50 RF: 1 levofloxacin 500 mg Tablet 500 mg PO DAILY Qty: 10 RF: 0 methylprednisolone [Medrol (Rolly)] 4 mg Tablets,Dose Pack See Rx Instructions .ROUTE .COMPLEX Qty: 1 RF: 0 Eliquis 2.5 mg Tablet 2.5 mg PO BID Qty: 60 RF: 0 Culturelle Digestive Health 10 billion cell -200 mg Capsule 1 cap PO DAILY Qty: 30 RF: 1 Culturelle Digestive Health 10 billion cell -200 mg Capsule 1 cap PO DAILY Qty: 30 RF: 1 Continued losartan 50 mg Tablet 50 mg PO BID RF: 0 furosemide 40 mg Tablet 40 mg PO DAILY RF: 0 carvedilol 12.5 mg Tablet 12.5 mg PO BID RF: 0 clonazepam 0.5 mg Tablet 0.5 mg PO QHS RF: 0 amlodipine 5 mg Tablet 5 mg PO DAILY RF: 0 levothyroxine 125 mcg Tablet 125 mcg PO DAILY RF: 0 aspirin 81 mg Tablet 81 mg PO DAILY RF: 0 gabapentin 400 mg Tablet 400 mg PO BID RF: 0 Orders to Discharge Patient Discharge Orders: Discharge (Routine); Ordered 01/18/20 Ordered By: Sherrie Miles Follow ups/Referrals Follow ups/Referrals: CELI COLUNGA [Primary Care Provider] - 1 WEEK Instructions Instructions: Fatigue, Hand Washing, Jnay-vo-Ejjh, Upper Respiratory Infection, Adult, Fwys-de-Ajmw, Cough, Adult, Cdtz-tc-Tafb, Antibiotic Medicine, Adult, Jdpu-ry-Jexl, Droplet Precautions, Ewox-yp-Wbym, Contact Precautions, Ywlx-nl-Mzji, Fever, Adult, Jsup-kl-Jozr Stand Alone Forms: Precautions for COVID19, Patient Portal, Social Distancing
[2020-01-18 15:03] VITALS: BP 138/58
== END 2020-01-18 15:30 | disposition home or self-care (01) ==
LOC: ICU
PROVIDERS: ADMIT Internal Medicine; ATTEND Internal Medicine